=== PATIENT | female | born 1985 | race Caucasian/White ===

== ENCOUNTER → 2017-07-03 | Outpatient (CLI) | payer OTHER ==
[2017-07-03 09:57] LABS: GTGD 50 Grams
[2017-07-05 13:26] LABS: AFP CONCENTRATION 31.7 NG/ML; AFP MULTIPLE OF MEDIAN 0.96; AFPTS GESTATIONAL AGE 16.6 WEEKS; AFPTS INSULIN DEP DIABETIC? NO; AFPTS MATERNAL WT 163 LBS; ALPHA-FETOPROTEIN RACE CAUCASIAN=W; ESTRIOL MULTIPLE OF MEDIAN 0.72; HISTORY OF NTD NO; INHIBIN A 122 PG/ML; INHIBIN A MOM 0.76; REPEAT SAMPLE? NO; hCG MULTIPLE OF MEDIAN 2.08
== END | disposition home or self-care (01) ==
LOC: C.LAB1850 09:01
PROVIDERS: ATTEND Obstetrics & Gynecology
DX: Z34.82 Encounter for supervision of other normal pregnancy, second trimester (principal)